=== PATIENT | female | born 1950 | race African-American/Black ===

== ENCOUNTER → 2017-01-08 | Outpatient (CLI) | payer MEDICARE, MEDICAID ==
[~2017-01-08] MED LIST: ATOR20TA65 PO; BENA20TA3 PO; CHOL100044 GT; CLON0.2T PO; GLIP10TA10 PO
[2017-01-08 14:12] LABS: BASOPHILS % 0.7 % (0.0-2.0); EOSINOPHILS % 2.3 % (0.0-5.0); HEMATOCRIT. 34.9 % (36.0-48.0); HEMOGLOBIN. 11.5 g/dL (12.0-16.0); LYMPHOCYTES % 34.3 % (20.0-50.0); MEAN CORPUSCULAR HEMOGLOBIN 28.3 pg (28.0-32.0); MEAN CORPUSCULAR VOLUME 86.1 fL (81.0-99.0); MEAN PLATELET VOLUME 7.5 fl (7.4-10.4); MONOCYTES % 5.2 % (2.0-8.0); NEUTROPHILS % 57.5 % (40.0-76.0); PLATELET 195 x1000/uL (130-400); RED BLOOD CELL COUNT 4.05 mill/uL (4.2-5.4); RED CELL DISTRIBUTION WIDTH 14.4 % (11.6-14.6)
[2017-01-08 14:52] LABS: CHLORIDE 103 mEq/L (98-107)
[2017-01-08 14:53] LABS: HDL CHOLESTEROL 80 mg/dL (40-59); LDL CHOLESTEROL 103 mg/dL (5-100)
== END | disposition home or self-care (01) ==
LOC: LAB 13:38
PROVIDERS: ATTEND Internal Medicine Nephrology
DX: I63.9 Cerebral infarction, unspecified (principal); I10 Essential (primary) hypertension; E11.65 Type 2 diabetes mellitus with hyperglycemia
CPT/HCPCS: 36415; 80053; 80061; 83036; 85025

== ENCOUNTER → 2017-02-28 | Outpatient (CLI) | payer MEDICARE, MEDICAID ==
[~2017-02-28] MED LIST changes: +ASPI-1159 PO; -CHOL100044 GT; +CHOL100044 PO; +LOSA50TA20 PO; +METO-539 PO; +SITA100T11 PO
[2017-02-28 17:19] LABS: CHLORIDE 107 mEq/L (98-107)
== END | disposition home or self-care (01) ==
LOC: LAB 15:55
PROVIDERS: ATTEND Internal Medicine Nephrology
DX: I10 Essential (primary) hypertension (principal); E11.9 Type 2 diabetes mellitus without complications
CPT/HCPCS: 36415; 80053; 83036; 84443

== ENCOUNTER 2017-04-09 16:26 | Inpatient (IN) | payer MEDICARE, MEDICAID ==
[~2017-04-09] VITALS: Ht 177.8 cm; Wt 77.1 kg
[~2017-04-09 16:26] MED LIST changes: -ASPI-1159 PO; -LOSA50TA20 PO; -METO-539 PO; -SITA100T11 PO
[2017-04-09 19:13] LABS: BASOPHILS % 0.7 % (0.0-2.0); EOSINOPHILS % 2.4 % (0.0-5.0); HEMOGLOBIN. 11.3 g/dL (12.0-16.0); LYMPHOCYTES % 35.3 % (20.0-50.0); MEAN CORPUSCULAR HEMOGLOBIN 28.3 pg (28.0-32.0); MEAN CORPUSCULAR VOLUME 87.3 fL (81.0-99.0); MEAN PLATELET VOLUME 7.8 fl (7.4-10.4); MONOCYTES % 9.5 % (2.0-8.0); NEUTROPHILS % 52.1 % (40.0-76.0); PLATELET 210 x1000/uL (130-400); RED BLOOD CELL COUNT 4.01 mill/uL (4.2-5.4); RED CELL DISTRIBUTION WIDTH 14.1 % (11.6-14.6)
[2017-04-09 19:14] LABS: PROTHROMBIN TIME 10.2 sec (9.4-11.6)
[2017-04-09 19:18] LABS: CHLORIDE 105 mEq/L (98-107)
[2017-04-09] MEDS ORDERED: CLONIDINE 0.1MG TABLET PO ONE (20:15)
[2017-04-09] MEDS: METOPROLOL TARTRATE 25MG TABLET PO SCH (22:30)
[2017-04-09] MEDS ORDERED: CLONIDINE 0.1MG TABLET PO PRN (22:30)
[2017-04-09] MEDS ORDERED: GUAIFENESIN 200MG/10ML SUGAR FREE UDC PO PRN (22:30)
[2017-04-09] MEDS ORDERED: ONDANSETRON HCL 4MG/2ML VIAL IV PRN (22:30)
[2017-04-09] MEDS ORDERED: TRAMADOL 50MG TABLET PO PRN (22:30)
[2017-04-09] MEDS ORDERED: NITROGLYCERIN 0.4MG TABLET SL SL PRN (22:30)
[2017-04-09] MEDS ORDERED: IPRATROPIUM/ALBUTEROL 0.5-3(2.5)MG/3ML NEB INH PRN (22:30)
[2017-04-09] MEDS ORDERED: NA PHOS,M-B/NA PHOS,DI-BA ENEMA 118ML PR PRN (22:30)
[2017-04-09] MEDS ORDERED: MAGNESIUM/ALUMINUM HYDROXIDE/SIMETHICONE 30ML UDC PO PRN (22:30)
[2017-04-09] MEDS ORDERED: DEXTROSE 50% WATER 50ML SYRINGE IV PRN (22:30)
[2017-04-09] MEDS ORDERED: DIPHENHYDRAMINE 50MG/ML VIAL IV PRN (22:30)
[2017-04-09] MEDS ORDERED: DOCUSATE SODIUM 100MG CAPSULE PO PRN (22:30)
[2017-04-09] MEDS ORDERED: ACETAMINOPHEN 325MG TABLET PO PRN (22:30)
[2017-04-09] MEDS ORDERED: LORAZEPAM 0.5MG TABLET PO PRN (22:30)
[2017-04-09] MEDS ORDERED: MORPHINE SULFATE 4 MG/ML CPJ (NOT FOR IM USE) IV PRN (22:45)
[2017-04-09] MEDS ORDERED: ZOLPIDEM TARTRATE 5MG TABLET PO PRN (23:00)
[2017-04-09 23:30] VITALS: BP 189/81
[2017-04-10] VITALS: BP 189/83
[2017-04-10] MEDS: AMLODIPINE 10MG TABLET PO SCH ×2 (00:17→09:00)
[2017-04-10] MEDS: HYDRALAZINE HCL 50MG TABLET PO SCH ×4 (00:17→21:56)
[2017-04-10] MEDS: LISINOPRIL 20MG TABLET PO SCH ×3 (00:17→20:46)
[2017-04-10] MEDS ORDERED: SITA100T11 PO (01:28)
[2017-04-10] MEDS ORDERED: ASPI-1159 PO (01:28)
[2017-04-10] MEDS ORDERED: METO-539 PO (01:28)
[2017-04-10] MEDS ORDERED: LOSA50TA20 PO (01:28)
[2017-04-10 02:56] LABS: CLARITY URINE CLEAR (CLEAR); COLOR URINE YELLOW (YELLOW); KETONES URINE NEGATIVE (NEGATIVE); LEUKOCYTE ESTERASE URINE TRACE (NEGATIVE); NITRITE URINE POSITIVE (NEGATIVE); OCCULT BLOOD URINE NEGATIVE (NEGATIVE); PH URINE 6.5 (4.5-8.0); PROTEIN URINE TRACE (NEGATIVE); SPECIFIC GRAVITY URINE 1.015 (1.005-1.030)
[2017-04-10 03:17] LABS: *AMPHETAMINES SCREEN URINE NEGATIVE (NEGATIVE); *BARBITURATES SCREEN URINE NEGATIVE (NEGATIVE); *BENZODIAZEPINES SCREEN URINE NEGATIVE (NEGATIVE); *COCAINE SCREEN URINE NEGATIVE (NEGATIVE); CANNABINOID URINE SCREEN NEGATIVE (NEGATIVE); METHADONE URINE SCREEN NEGATIVE (NEGATIVE); OPIATES URINE SCREEN NEGATIVE (NEGATIVE); PHENCYCLIDINE URINE SCREEN NEGATIVE (NEGATIVE)
[2017-04-10 04:00] VITALS: BP 118/71
[2017-04-10] MEDS: BLOOD SUGAR DIAGNOSTIC STRIP TEST SCH ×4 (06:07→21:17)
[2017-04-10 07:45] LABS: CREATINE KINASE 132 IU/L (26-192); CREATINE KINASE MB FRACTION 0.9 ng/mL (0.5-3.6)
[2017-04-10 08:00] VITALS: BP 121/65
[2017-04-10] MEDS ORDERED: INFLUENZA VIRUS VACCINE 0.5ML SYR IM ONE (08:00)
[2017-04-10] MEDS: ASPIRIN 325MG EC TABLET PO SCH (09:11)
[2017-04-10] MEDS: METOPROLOL TARTRATE 25MG TABLET PO SCH ×2 (09:11→20:47)
[2017-04-10] MEDS: FAMOTIDINE 20MG/2ML VIAL IV SCH ×2 (09:11→20:45)
[2017-04-10] MEDS: ENOXAPARIN 30MG/0.3ML SYR SUBCUT SCH ×2 (09:12→21:28)
[2017-04-10] MEDS: INSULIN LISPRO 100 UNITS/ML SUBCUT SCH ×4 (09:14→21:28)
[2017-04-10 15:42] LABS: CREATINE KINASE 115 IU/L (26-192); CREATINE KINASE MB FRACTION 0.9 ng/mL (0.5-3.6)
[2017-04-10 16:00] VITALS: BP 156/76
[2017-04-10 20:00] VITALS: BP 175/70
[2017-04-11] VITALS: BP 181/83
[2017-04-11 04:00] VITALS: BP 177/82
[2017-04-11] MEDS: HYDRALAZINE HCL 50MG TABLET PO SCH ×3 (06:45→21:33)
[2017-04-11] MEDS: BLOOD SUGAR DIAGNOSTIC STRIP TEST SCH ×4 (06:52→21:42)
[2017-04-11 08:00] VITALS: BP 178/87
[2017-04-11] MEDS: FAMOTIDINE 20MG/2ML VIAL IV SCH ×2 (08:59→21:33)
[2017-04-11] MEDS: ASPIRIN 325MG EC TABLET PO SCH (08:59)
[2017-04-11] MEDS: AMLODIPINE 10MG TABLET PO SCH (08:59)
[2017-04-11] MEDS: LISINOPRIL 20MG TABLET PO SCH ×2 (08:59→21:33)
[2017-04-11] MEDS: METOPROLOL TARTRATE 25MG TABLET PO SCH ×2 (09:00→21:33)
[2017-04-11] MEDS: INSULIN LISPRO 100 UNITS/ML SUBCUT SCH ×4 (09:01→21:34)
[2017-04-11] MEDS: ENOXAPARIN 30MG/0.3ML SYR SUBCUT SCH ×2 (09:01→21:33)
[2017-04-11 12:00] VITALS: BP 165/85
[2017-04-11 16:00] VITALS: BP 180/75
[2017-04-11 19:09] LABS: CHLORIDE 101 mEq/L (98-107)
[2017-04-11 20:13] VITALS: BP 192/85
[2017-04-12] VITALS (7 sets, daily range): BP systolic 122–179; BP diastolic 67–88
[2017-04-12] MEDS: HYDRALAZINE HCL 50MG TABLET PO SCH ×2 (05:14→14:35)
[2017-04-12] MEDS: BLOOD SUGAR DIAGNOSTIC STRIP TEST SCH ×2 (05:58→12:40)
[2017-04-12] MEDS: INSULIN LISPRO 100 UNITS/ML SUBCUT SCH ×2 (07:29→13:06)
[2017-04-12] MEDS: FAMOTIDINE 20MG/2ML VIAL IV SCH (09:32)
[2017-04-12] MEDS: ENOXAPARIN 30MG/0.3ML SYR SUBCUT SCH (09:32)
[2017-04-12] MEDS: METOPROLOL TARTRATE 25MG TABLET PO SCH (09:33)
[2017-04-12] MEDS: ASPIRIN 325MG EC TABLET PO SCH (09:33)
[2017-04-12] MEDS: AMLODIPINE 10MG TABLET PO SCH (09:33)
[2017-04-12] MEDS: LISINOPRIL 20MG TABLET PO SCH (09:33)
[2017-04-12] MEDS ORDERED: ATORVASTATIN CALCIUM 10MG TABLET PO SCH (21:00)
[2017-04-14 19:07] LABS: *CREATININE RANDOM URINE 71.3 mg/dL (Not Estab.); MICROALBUMIN RANDOM URINE 105.5 ug/mL (Not Estab.)
== END 2017-04-12 15:20 | disposition home or self-care (01) | DRG 292 ==
LOC: ER 17:28 → 7WST 20:43 → EDBEDREQ 20:46 → ENRESERV 21:16 → SUPCPDRO 22:20
PROVIDERS: ADMIT Internal Medicine; ATTEND Internal Medicine
DX: I11.0 Hypertensive heart disease with heart failure (principal); N17.9 Acute kidney failure, unspecified; E44.0 Moderate protein-calorie malnutrition; E11.22 Type 2 diabetes mellitus with diabetic chronic kidney disease; I50.31 Acute diastolic (congestive) heart failure; D64.9 Anemia, unspecified; E66.01 Morbid (severe) obesity due to excess calories; W18.39XA Other fall on same level, initial encounter; Z88.0 Allergy status to penicillin; Z79.899 Other long term (current) drug therapy; Z86.73 Personal history of transient ischemic attack (TIA), and cerebral infarction without residual deficits; Z79.4 Long term (current) use of insulin; Z68.24 Body mass index [BMI] 24.0-24.9, adult; Y93.89 Activity, other specified; Y92.89 Other specified places as the place of occurrence of the external cause; Y99.8 Other external cause status
CPT/HCPCS: 36415; 70450; 70551; 71045; 76770; 80048; 80053; 80061; 80305; 81003; 82043; 82550; 82553; 82570; 82962; 83036; 83605; 83690; 83880; 84484; 85025; 85610; 87040; 90686; 93005; 93306; 93970; 97116; 97162; 97166; 97530; 97535; 99285; J1650; J1815; J3490

== ENCOUNTER → 2017-09-17 | Outpatient (CLI) | payer MEDICARE, MEDICAID ==
[~2017-09-17] MED LIST changes: +ASPI-1159 PO; +BENA20TA10 PO; -BENA20TA3 PO; +LOSA50TA20 PO; +METO-539 PO; +SITA100T11 PO
[2017-09-17 14:22] LABS: CHLORIDE 109 mEq/L (98-107)
[2017-09-17 14:29] LABS: LDL CHOLESTEROL 123 mg/dL (5-100)
[2017-09-17 14:30] LABS: HDL CHOLESTEROL 80 mg/dL (40-59)
== END | disposition home or self-care (01) ==
LOC: LAB 13:19
PROVIDERS: ATTEND Internal Medicine Nephrology
DX: I10 Essential (primary) hypertension (principal); E11.9 Type 2 diabetes mellitus without complications; Z86.73 Personal history of transient ischemic attack (TIA), and cerebral infarction without residual deficits
CPT/HCPCS: 36415; 80053; 80061; 83036

== ENCOUNTER 2018-03-19 13:56 | Inpatient (IN) | payer MEDICARE, MEDICAID ==
[~2018-03-19] VITALS: Ht 177.8 cm; Wt 121.1 kg
[2018-03-19] MEDS ORDERED: SODIUM CHLORIDE 0.9% 1,000 ML IV ONE (20:34)
[2018-03-19 21:29] LABS: EOSINOPHILS % 0.9 % (0.0-5.0); HEMATOCRIT. 39.5 % (36.0-48.0); HEMOGLOBIN. 12.8 g/dL (12.0-16.0); LYMPHOCYTES % 24.2 % (20.0-50.0); MEAN CORPUSCULAR HEMOGLOBIN 28.6 pg (28.0-32.0); MEAN CORPUSCULAR VOLUME 88.3 fL (81.0-99.0); MEAN PLATELET VOLUME 8.1 fl (7.4-10.4); MONOCYTES % 6.8 % (2.0-8.0); NEUTROPHILS % 67.1 % (40.0-76.0); PLATELET 255 x1000/uL (130-400); RED BLOOD CELL COUNT 4.47 mill/uL (4.2-5.4); RED CELL DISTRIBUTION WIDTH 14.8 % (11.6-14.6)
[2018-03-19 21:33] LABS: CHLORIDE 103 mEq/L (98-107)
[2018-03-19 21:35] LABS: PROTHROMBIN TIME 10.4 sec (9.1-11.1)
[2018-03-19] MEDS: SODIUM CHLORIDE 0.45% 1,000 ML IV SCH (23:51)
[2018-03-20] MEDS ORDERED: LORAZEPAM 2MG/ML CPJ IV PRN
[2018-03-20] MEDS ORDERED: ACETAMINOPHEN 325MG TABLET PO PRN
[2018-03-20] MEDS ORDERED: HYDROMORPHONE HCL/PF 2MG/ML CPJ IV PRN
[2018-03-20] MEDS ORDERED: DOCUSATE SODIUM 100MG CAPSULE PO PRN
[2018-03-20] MEDS ORDERED: IPRATROPIUM/ALBUTEROL 0.5-3(2.5)MG/3ML NEB INH PRN
[2018-03-20] MEDS ORDERED: NA PHOS,M-B/NA PHOS,DI-BA ENEMA 118ML PR PRN
[2018-03-20] MEDS ORDERED: MAGNESIUM/ALUMINUM HYDROXIDE/SIMETHICONE 30ML UDC PO PRN
[2018-03-20] MEDS ORDERED: ONDANSETRON HCL 4MG/2ML INJ IV PRN
[2018-03-20] MEDS ORDERED: HYDROCODONE/ACETAMINOPHEN 5/325MG TABLET PO PRN
[2018-03-20] MEDS ORDERED: GUAIFENESIN 200MG/10ML SUGAR FREE UDC PO PRN
[2018-03-20] MEDS ORDERED: DIPHENHYDRAMINE 50MG/ML VIAL IV PRN
[2018-03-20 04:31] LABS: BASOPHILS % 1.9 % (0.0-2.0); EOSINOPHILS % 2.7 % (0.0-5.0); HEMATOCRIT. 34.9 % (36.0-48.0); HEMOGLOBIN. 11.4 g/dL (12.0-16.0); LYMPHOCYTES % 34.7 % (20.0-50.0); MEAN CORPUSCULAR HEMOGLOBIN 28.6 pg (28.0-32.0); MEAN CORPUSCULAR VOLUME 87.7 fL (81.0-99.0); MEAN PLATELET VOLUME 7.2 fl (7.4-10.4); MONOCYTES % 7.6 % (2.0-8.0); NEUTROPHILS % 53.1 % (40.0-76.0); PLATELET 231 x1000/uL (130-400); RED BLOOD CELL COUNT 3.99 mill/uL (4.2-5.4); RED CELL DISTRIBUTION WIDTH 14.7 % (11.6-14.6)
[2018-03-20 04:38] LABS: CHLORIDE 107 mEq/L (98-107)
[2018-03-20 04:45] LABS: LDL CHOLESTEROL 164 mg/dL (5-100)
[2018-03-20 04:46] LABS: HDL CHOLESTEROL 80 mg/dL (40-59)
[2018-03-20 08:00] VITALS: BP 143/63
[2018-03-20] MEDS ORDERED: ENOXAPARIN 40MG/0.4ML SYR SUBCUT SCH ×2 (09:00)
[2018-03-20] MEDS ORDERED: POTASSIUM CHLORIDE 20MEQ TABLET SR PO SCH (09:00)
[2018-03-20 10:56] VITALS: BP 143/63
[2018-03-20 12:04] LABS: T4 FREE 1.07 ng/dL (0.76-1.46)
[2018-03-20] MEDS ORDERED: DEXTROSE 50% WATER 50ML SYRINGE IV PRN (14:15)
[2018-03-20 15:50] LABS: CREATINE KINASE 102 IU/L (26-192)
[2018-03-20 15:51] LABS: CREATINE KINASE MB FRACTION < 1.0 ng/mL (0.5-3.6)
[2018-03-20 16:00] VITALS: BP 148/43
[2018-03-20] MEDS: BLOOD SUGAR DIAGNOSTIC STRIP TEST SCH ×2 (17:20→21:00)
[2018-03-20] MEDS: INSULIN LISPRO 100 UNITS/ML SUBCUT SCH ×2 (17:50→23:18)
[2018-03-20 20:00] VITALS: BP 170/82
[2018-03-20] MEDS: SODIUM CHLORIDE 0.45% 1,000 ML IV SCH (21:11)
[2018-03-20] MEDS: ENOXAPARIN 30MG/0.3ML SYR SUBCUT SCH (21:11)
[2018-03-20] MEDS: CLONIDINE 0.1MG TABLET PO PRN (21:16)
[2018-03-20 23:43] LABS: CREATINE KINASE 90 IU/L (26-192)
[2018-03-20 23:44] LABS: CREATINE KINASE MB FRACTION < 1.0 ng/mL (0.5-3.6)
[2018-03-21] VITALS (7 sets, daily range): BP systolic 136–158; BP diastolic 52–80
[2018-03-21 07:42] LABS: CREATINE KINASE 83 IU/L (26-192)
[2018-03-21 07:44] LABS: CREATINE KINASE MB FRACTION < 1.0 ng/mL (0.5-3.6)
[2018-03-21] MEDS: BLOOD SUGAR DIAGNOSTIC STRIP TEST SCH ×5 (07:50→23:15)
[2018-03-21] MEDS: INSULIN LISPRO 100 UNITS/ML SUBCUT SCH ×4 (09:02→23:41)
[2018-03-21] MEDS: ENOXAPARIN 30MG/0.3ML SYR SUBCUT SCH ×2 (09:04→23:08)
[2018-03-21] MEDS: SODIUM CHLORIDE 0.45% 1,000 ML IV SCH (23:45)
[2018-03-22] VITALS: BP 146/71
[2018-03-22 04:00] VITALS: BP 152/79
[2018-03-22] MEDS: BLOOD SUGAR DIAGNOSTIC STRIP TEST SCH ×4 (07:34→22:35)
[2018-03-22 08:00] VITALS: BP 157/87
[2018-03-22] MEDS: ENOXAPARIN 30MG/0.3ML SYR SUBCUT SCH ×2 (08:52→22:30)
[2018-03-22] MEDS: INSULIN LISPRO 100 UNITS/ML SUBCUT SCH ×4 (08:57→22:58)
[2018-03-22] MEDS: BENAZEPRIL 10MG TABLET PO SCH ×2 (10:40→22:29)
[2018-03-22 12:00] VITALS: BP 166/80
[2018-03-22 16:00] VITALS: BP 161/81
[2018-03-22 20:00] VITALS: BP 140/73
[2018-03-23] VITALS: BP 171/78
[2018-03-23 04:00] VITALS: BP 152/84
[2018-03-23] MEDS: BLOOD SUGAR DIAGNOSTIC STRIP TEST SCH ×4 (07:05→21:00)
[2018-03-23 08:00] VITALS: BP 156/68
[2018-03-23] MEDS: BENAZEPRIL 10MG TABLET PO SCH ×2 (09:35→22:12)
[2018-03-23] MEDS: ENOXAPARIN 30MG/0.3ML SYR SUBCUT SCH ×2 (09:35→22:13)
[2018-03-23] MEDS: INSULIN LISPRO 100 UNITS/ML SUBCUT SCH ×4 (09:39→23:27)
[2018-03-23 09:40] LABS: CHLORIDE 104 mEq/L (98-107)
[2018-03-23 12:00] VITALS: BP 164/71
[2018-03-23 16:00] VITALS: BP 126/75
[2018-03-23 20:00] VITALS: BP 169/84
[2018-03-23] MEDS: CLONIDINE 0.1MG TABLET PO PRN (20:18)
[2018-03-24] VITALS: BP 166/79
[2018-03-24 04:00] VITALS: BP 146/65
[2018-03-24] MEDS: BLOOD SUGAR DIAGNOSTIC STRIP TEST SCH ×2 (07:20→12:20)
[2018-03-24] MEDS: ENOXAPARIN 30MG/0.3ML SYR SUBCUT SCH (09:04)
[2018-03-24] MEDS: BENAZEPRIL 10MG TABLET PO SCH (09:04)
[2018-03-24] MEDS: INSULIN LISPRO 100 UNITS/ML SUBCUT SCH ×2 (09:10→13:55)
[2018-03-24] MEDS: CLONIDINE 0.1MG TABLET PO PRN (16:30)
== END 2018-03-24 16:40 | disposition home health service (06) | DRG 392 ==
LOC: ER 14:06 → 6EST 22:27 → ENRESERV 03-20 07:02
PROVIDERS: ADMIT Internal Medicine; ATTEND Internal Medicine
DX: K52.9 Noninfective gastroenteritis and colitis, unspecified (principal); E46 Unspecified protein-calorie malnutrition; I69.354 Hemiplegia and hemiparesis following cerebral infarction affecting left non-dominant side; E87.70 Fluid overload, unspecified; I10 Essential (primary) hypertension; E86.0 Dehydration; I25.10 Atherosclerotic heart disease of native coronary artery without angina pectoris; E87.6 Hypokalemia; E66.9 Obesity, unspecified; E11.9 Type 2 diabetes mellitus without complications; F03.90 Unspecified dementia, unspecified severity, without behavioral disturbance, psychotic disturbance, mood disturbance, and anxiety; Z68.38 Body mass index [BMI] 38.0-38.9, adult; Z88.0 Allergy status to penicillin; Z79.82 Long term (current) use of aspirin; Z79.899 Other long term (current) drug therapy; Z79.84 Long term (current) use of oral hypoglycemic drugs
CPT/HCPCS: 36415; 80048; 80061; 82550; 82553; 82962; 83036; 83880; 84439; 84443; 84484; 85379; 93005; 93306; 96374; 96375; 97162; 99285; J1650; J1815; J7030

== ENCOUNTER → 2018-08-06 | Outpatient (CLI) | payer MEDICARE, MEDICAID ==
[~2018-08-06] MED LIST changes: -ASPI-1159 PO; +ASPI-1393 PO; -LOSA50TA20 PO; +LOSA50TA41 PO
[2018-08-06 13:42] LABS: CHLORIDE 105 mEq/L (98-107)
[2018-08-06 13:50] LABS: LDL CHOLESTEROL 196 mg/dL (5-100)
[2018-08-06 13:51] LABS: HDL CHOLESTEROL 80 mg/dL (40-59)
== END | disposition home or self-care (01) ==
LOC: LAB 12:55
PROVIDERS: ATTEND Internal Medicine Nephrology
DX: E11.9 Type 2 diabetes mellitus without complications (principal); I10 Essential (primary) hypertension; E66.9 Obesity, unspecified; I82.409 Acute embolism and thrombosis of unspecified deep veins of unspecified lower extremity
CPT/HCPCS: 36415; 80061; 83036; 84443